=== PATIENT | female | born 1970 | race Caucasian/White ===

== ENCOUNTER 2017-05-11 01:23 | Emergency (ER) | payer OTHER ==
[~2017-05-11] VITALS: Ht 162.6 cm; Wt 70.3 kg
[2017-05-11 01:30] VITALS: BP 141/89; PULSE 67; RESP 18; TEMP 97.6; O2SAT 95
[2017-05-11] MEDS ORDERED: TETANUS/DIPHTHERIA TOXOID ADULT 0.5 ML VIAL IM ONE (02:30)
[2017-05-11] MEDS ORDERED: LIDOCAINE HCL 1% 20 ML VIAL INFIL ONE (02:30)
[2017-05-11] MEDS ORDERED: LIDOCAINE HCL 1% PF 10 ML VIAL INFIL ONE (02:45)
--- NOTE | 2017-05-11 03:29 | PD ---
HPI . Laceration Chief Complaint: Laceration/Skin Injury Time Seen by Provider: 02:27 Travel History International Travel<30 days: No Contact w/Intl Traveler<30days: No Traveled to known affect area: No History of Present Illness HPI This patient had a trip and fall just prior to arrival causing a laceration to her right eyebrow. No loss of consciousness. Last tetanus shot was in 2011. PFSH Past Medical History Medical History: Denies Significant Hx Tetanus Vaccination: > 5 Years Influenza Vaccination: Yes ?: Not LMP: 3 WEEKS AGO Past Surgical History Other Surgery: Yes (NASAL SX) Social History Alcohol Use: No Tobacco Use: No Substance Use: No Allergies-Medications (Allergen,Severity, Reaction): Coded Allergies: No Known Allergies (Unverified , 05/11/17) Review of Systems Except as stated in HPI: all other systems reviewed are Neg Physical Exam Narrative GENERAL: Awake and alert and in no acute distress. SKIN: Warm and dry. Laceration in the right eyebrow. HEAD: Normocephalic/atraumatic. EYES: Pupils are equal. Extraocular movements are intact. NECK: Normal range of motion. CARDIOVASCULAR: Regular rate and rhythm. RESPIRATORY: Nonlabored respirations. MUSCULOSKELETAL: Atraumatic. NEUROLOGICAL: Nonfocal. PSYCHIATRIC: Appropriate mood and affect. Data Data Last Documented VS Vital Signs Date Time Temp Pulse Resp B/P (MAP) Pulse Ox O2 Delivery O2 Flow Rate FiO2 05/11/17 01:30 97.6 67 18 141/89 (106) 95 Orders Orders Tetanus/Diphtheria Tox Adult (Tetanus/Di (05/11/17 02:30) Lidocaine Pf 1% Inj (Xylocaine-Mpf 1% In (05/11/17 02:45) MDM Medical Decision Making Medical Screen Exam Complete: Yes Emergency Medical Condition: Yes Differential Diagnosis Differential diagnosis includes but is not limited to skin laceration, muscular laceration, tendon laceration, neurovascular laceration. Narrative Course This patient presents with a laceration in her right eyebrow. Tetanus shot was updated. The wound was closed. Procedures Procedure Narrative LACERATION LOCATION: Right eyebrow LENGTH: 2 cm NUMBER OF STITCHES/JOHNATHAN: 3 REPAIR: The area of the laceration was prepped with Betadine and sterilely draped. The laceration was infiltrated with 1% plain lidocaine. The wound was closed using 6-0 Prolene. This was a single layer repair. A sterile dressing was applied. The patient was advised to keep the dressing clean and dry. Patient tolerated the procedure well. Diagnosis Primary Impression: Laceration of right eyebrow Qualified Codes: S01.111A - Laceration without foreign body of right eyelid and periocular area, initial encounter Patient Instructions: Facial Laceration (ED), General Instructions Additional Instructions: Antibiotic ointment twice a day. Suture removal in 5 days. Disposition: 01 DISCHARGE HOME Condition: Stable Nidia Conde MD May 11, 2017 03:29
== END 2017-05-11 03:50 | disposition home or self-care (01) ==
LOC: PHED 01:23
DX: S01.111A Laceration without foreign body of right eyelid and periocular area, initial encounter (principal); Z23 Encounter for immunization; W01.0XXA Fall on same level from slipping, tripping and stumbling without subsequent striking against object, initial encounter
CPT/HCPCS: 12011; 90471; 90714

== ENCOUNTER 2017-05-16 12:06 | Emergency (ER) | payer OTHER ==
[~2017-05-16] VITALS: Ht 162.6 cm; Wt 65.9 kg
[2017-05-16 12:07] VITALS: BP 126/80; PULSE 73; RESP 18; TEMP 98.2; O2SAT 99
--- NOTE | 2017-05-18 19:40 | PD ---
HPI Chief Complaint: Skin Problem Time Seen by Provider: 12:23 Travel History International Travel<30 days: No Contact w/Intl Traveler<30days: No Traveled to known affect area: No History of Present Illness HPI This is a 46-year-old female here requesting recheck of a laceration to her right eyebrow. 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 She did not anticipate to fully register and be seen as a patient. Once she was registered as a patient she requested to have that chart removed and did not wish to be seen. She denies any medical complaint. She reports she has a family doctor who can remove the sutures and doesn't need it done here. PFSH Past Surgical History Other Surgery: Yes (NASAL SX) Social History Alcohol Use: No Tobacco Use: No Substance Use: No Allergies-Medications (Allergen,Severity, Reaction): Coded Allergies: No Known Allergies (Unverified , 05/11/17) Physical Exam Narrative GENERAL: Alert and well-appearing 46 year old female SKIN: Warm and dry. Well healing laceration to the left brow HEAD: Normocephalic. EYES: No injection or drainage. Data Data Last Documented VS Vital Signs Date Time Temp Pulse Resp B/P (MAP) Pulse Ox O2 Delivery O2 Flow Rate FiO2 05/16/17 12:07 98.2 73 18 126/80 (95) 99 Room Air MDM Medical Decision Making Medical Screen Exam Complete: Yes Emergency Medical Condition: No Differential Diagnosis Wound check Narrative Course This is a 46-year-old female who came down to the emergency department hoping to have some edema looked her suture and tell her the need to be removed or not. Chart was made she was registered patient. She did not want to be seen this patient. She has a family doctor and can follow-up with him for suture removal. She has no medical complaint. There is no medical emergency that needs to be treated. A medical screening exam was performed: At the time of evaluation the presenting medical condition was determined not to be of an emergent nature. The patient was given the option of receiving additional care, but declined. Patient was given options for additional community resources from which to obtain care. The Patient Has Been advised to seek medical attention for their presenting complaint. The patient has been advised to return to the ER at any time if an emergent condition develops. Diagnosis Primary Impression: Encounter for medical screening examination Referrals: Primary Care Physician Disposition: 01 DISCHARGE HOME Condition: Stable Pam Paredes May 18, 2017 19:40
== END 2017-05-16 12:30 | disposition left against medical advice (07) ==
LOC: NEPK 12:06
DX: S01.111A Laceration without foreign body of right eyelid and periocular area, initial encounter (principal); X58.XXXA Exposure to other specified factors, initial encounter
CPT/HCPCS: 99281